=== PATIENT | female | born 1985 | race Caucasian/White ===

== ENCOUNTER 2017-02-28 11:07 | Emergency (ER) | payer OTHER | END 2017-02-28 12:30 | disposition home or self-care (01) | LOC: ER1 11:07 | DX: S61.210A Laceration without foreign body of right index finger without damage to nail, initial encounter (principal); I10 Essential (primary) hypertension; Z79.899 Other long term (current) drug therapy; W26.0XXA Contact with knife, initial encounter | CPT/HCPCS: 99283 ==

== ENCOUNTER 2021-04-06 09:09 | Emergency (ER) | payer OTHER ==
[~2021-04-06 09:09] MED LIST: FLAGYL500 MG PO; IMITREX100 MG PO; LEVAQUIN500 MG PO; SYNTHROID75 MCG PO; TOPAMAX50 MG PO
[2021-04-06] MEDS ORDERED: DIFLUCAN150 MG PO (13:18)
[2021-04-06] MEDS ORDERED: PENVEE K 500 M500 MG PO (13:18)
== END 2021-04-06 13:30 | disposition home or self-care (01) ==
LOC: ER1 09:09
DX: G43.909 Migraine, unspecified, not intractable, without status migrainosus (principal); K05.10 Chronic gingivitis, plaque induced; E03.9 Hypothyroidism, unspecified; Z90.710 Acquired absence of both cervix and uterus; Z79.899 Other long term (current) drug therapy; F17.210 Nicotine dependence, cigarettes, uncomplicated
CPT/HCPCS: 81001; 96374; 96375; 99283; J1100; J1200; J1885; J2270; J2405; J2765